=== PATIENT | female | born 1980 | race Caucasian/White ===

== ENCOUNTER → 2018-10-30 | Outpatient (CLI) | payer BC ==
--- NOTE | 2018-10-30 09:48 | Diagnostic Imaging Report ---
PROCEDURE: MRI lumbar spine. TECHNIQUE: Multiplanar, multisequence MRI of the lumbar spine was performed without contrast. INDICATION: Low back pain with occasional pain and numbness in the lower extremities. No prior studies are available for comparison. FINDINGS: Curvature of the lumbar spine is normal. There appears to be minimal retrolisthesis of L5 on S1. Vertebral body heights are maintained. The marrow signal intensity is unremarkable. No geographic marrow lesion or acute compression fracture is seen. There is some desiccation of the disc at L5-S1 level compatible with degenerative change. Remaining disc demonstrate normal height and signal intensity. The conus appears unremarkable at the L1-2 level. T12-L1: Central canal and neural foramina are widely patent. L1-L2: Unremarkable. L2-L3: There is some ligamentous thickening and facet changes but central canal and neural foramina are widely patent. L3-L4: There are degenerative changes of the facet as well as ligamentous thickening. Central canal remains widely patent. No neural foraminal stenosis is seen. L4-L5: Ligament thickening and facet changes are present. Central canal remains patent. Neural foramina are patent. L5-S1: Ligamentous thickening and facet changes are present. This does create some trefoil configuration to the sac. There is also broad-based disc/osteophyte complex indenting the sac. Moderate central canal and bilateral lateral recess narrowing is noted. Neural foramina are patent. Paraspinous tissues are unremarkable. IMPRESSION: 1. Minimal retrolisthesis L5 on S1. There is also L5-S1 degenerative disc and facet disease resulting in central canal and lateral recess stenosis. No neural foraminal stenosis is seen. There is facet arthropathy at all levels of lumbar spine, but remaining levels are without central canal or neural foraminal narrowing. Dictated by: Dictated on workstation # [id number]
== END ==
LOC: RAD 08:41
PROVIDERS: ATTEND Nurse Practitioner Family
DX: M51.37 Other intervertebral disc degeneration, lumbosacral region (principal); M48.061 Spinal stenosis, lumbar region without neurogenic claudication; M46.86 Other specified inflammatory spondylopathies, lumbar region
CPT/HCPCS: 72148

== ENCOUNTER 2018-12-19 19:40 | Emergency (ER) | payer BC ==
[~2018-12-19] VITALS: Ht 160 cm; Wt 70.3 kg
[2018-12-19] MEDS ORDERED: NS IV 1000 ML 1,000 ML IV ONE (20:15)
[2018-12-19 20:39] LABS: BASOPHILS % (AUTO) 0 % (0-10); EOSINOPHILS % (AUTO) 1 % (0-10); HEMATOCRIT 42 % (35-52); HEMOGLOBIN 14.2 G/DL (11.5-16.0); LYMPHOCYTES % (AUTO) 25 % (12-44); MEAN CORPUSCULAR HEMOGLOBIN 29 PG (25-34); MEAN CORPUSCULAR HGB CONC 34 G/DL (32-36); MEAN CORPUSCULAR VOLUME 86 FL (80-99); MEAN PLATELET VOLUME 9.5 FL (7.4-10.4); MONOCYTES % (AUTO) 8 % (0-12); NEUTROPHILS % (AUTO) 65 % (42-75); PLATELET COUNT 341 10^3/uL (130-400); WHITE BLOOD COUNT 9.1 10^3/uL (4.3-11.0)
[2018-12-19 20:40] LABS: EOSINOPHILS # (AUTO) 0.1 10^3/uL (0.0-0.3); LYMPHOCYTES # (AUTO) 2.2 X 10^3 (1.0-4.0); MONOCYTES # (AUTO) 0.8 X 10^3 (0.0-1.0); NEUTROPHILS # (AUTO) 5.9 X 10^3 (1.8-7.8)
[2018-12-19 21:00] LABS: CARBON DIOXIDE 25 MMOL/L (21-32); CHLORIDE 98 MMOL/L (98-107); POTASSIUM 3.4 MMOL/L (3.6-5.0); SODIUM 139 MMOL/L (135-145)
[2018-12-19 21:01] LABS: ALANINE AMINOTRANSFERASE 46 U/L (0-55); ALBUMIN 4.5 GM/DL (3.2-4.5); ALKALINE PHOSPHATASE 111 U/L (40-136); BILIRUBIN,TOTAL 0.4 MG/DL (0.1-1.0); BUN/CREATININE RATIO 8; CALCIUM 9.1 MG/DL (8.5-10.1); CREATININE SERUM 0.89 MG/DL (0.60-1.30); GFR ESTIMATED > 60; GLUCOSE 95 MG/DL (70-105); TOTAL PROTEIN 7.5 GM/DL (6.4-8.2)
[2018-12-19 21:03] LABS: AMPHETAMINE SCREEN, URINE POSITIVE (NEGATIVE); BENZODIAZEPINES SCREEN URINE NEGATIVE (NEGATIVE); COCAINE SCREEN URINE NEGATIVE (NEGATIVE); METHAMPHETAMINE SCREEN URINE S NEGATIVE (NEGATIVE); OPIATE SCREEN URINE POSITIVE (NEGATIVE); TRICYCLIC ANTIDEPRESSANTS SCRE POSITIVE (NEGATIVE)
[2018-12-19 21:04] LABS: BARBITURATE SCREEN URINE NEGATIVE (NEGATIVE); CANNABINOID SCREEN, URINE NEGATIVE (NEGATIVE); METHADONE STAT NEGATIVE (NEGATIVE); OXYCODONE STAT NEGATIVE (NEGATIVE); PROPOXYPHENE STAT NEGATIVE (NEGATIVE)
[2018-12-19 21:22] LABS: BACTERIA,URINE FEW /HPF; BILIRUBIN,URINE NEGATIVE (NEGATIVE); CLARITY,URINE CLEAR; COLOR,URINE YELLOW; GLUCOSE, URINE (UA) NEGATIVE (NEGATIVE); KETONES,URINE NEGATIVE (NEGATIVE); LEUKOCYTE ESTERASE ,URINE NEGATIVE (NEGATIVE); NITRITE,URINE NEGATIVE (NEGATIVE); PROTEIN,URINE NEGATIVE (NEGATIVE); UROBILINOGEN,URINE 0.2 MG/DL (NORMAL); WBC,URINE 0-2 /HPF
--- NOTE | 2018-12-19 23:33 | ED General ---
General Chief Complaint: Respiratory Problems Stated Complaint: SOB/DIZZINESS Nursing Triage Note: Patient presents with complaints of dizziness and shortness of breath. Patient is anxious and tearful. Patient states that she hasn't been feeling good for the last week or so. Patient is unable to accurately describe what is wrong without getting upset. Patient does state she has been to the doctor and they have increased her anxiety and depression medications. Patient complains of dry throat, increased heart rate, shortness of breath, flushing and anxiety. Patient also states she has been unable to eat much of anything but denies nausea/vomiting. Nursing Sepsis Screen: No Definite Risk Source of Information: Patient History of Present Illness Date Seen by Provider: Dec 19, 2018 Time Seen by Provider: 22:58 Initial Comments 38 yo F presents with complaint of being dizzy and short of breath. She has not felt well for a while now but today she had an episode of feeling her heart racing. She was feeling like she was hyperventilating and then had tingling in her hands as well. she had generalized pains in her body as well. She has fibromyalgia and was unsure if this was a flare up for her or if there was something more wrong. She also had chest pains that started up for her. she had this persist at home despite trying to get it to calm down for her. When she could not get it to improve she finally decided to come to the ED to see if th ere was something more going on or if she was having something with her heart happening instead of just her fibromyalgia acting up. She has been under extra stress recently with graduation and several family issues. Allergies and Home Medications Allergies Coded Allergies: No Known Drug Allergies (Unverified , 12/19/18) Patient Home Medication List Home Medication List Reviewed: Yes Review of Systems Review of Systems Constitutional: see HPI EENTM: nose congestion, other (sinus pressure) Respiratory: cough, short of breath Cardiovascular: see HPI, chest pain, palpitations Gastrointestinal: no symptoms reported Genitourinary: no symptoms reported Musculoskeletal: muscle pain (generalized) Skin: no symptoms reported Psychiatric/Neurological: Anxiety Hematologic/Lymphatic: No Symptoms Reported Past Huwxruk-Dqhecu-Jpcxte Hx Past Med/Social Hx: Reviewed Nursing Past Med/Soc Hx Patient Social History Alcohol Use: Denies Use Recreational Drug Use: No Smoking Status: Never a Smoker 2nd Hand Smoke Exposure: No Recent Foreign Travel: No Contact w/Someone Who Travel: No Recent Infectious Disease Expo: No Recent Hopitalizations: No Physical Abuse: No Sexual Abuse: No Mistreated: No Fear: No Seasonal Allergies Seasonal Allergies: No Past Medical History Surgeries: No Respiratory: No Cardiac: No Neurological: Yes (Fibromyalgia) Genitourinary: No Gastrointestinal: Yes Irritable Bowel Musculoskeletal: No Endocrine: No HEENT: No Cancer: No Psychosocial: Yes Anxiety, Depression Integumentary: No Blood Disorders: No Physical Exam Vital Signs Vital Signs - First Documented 12/19/18 19:45 Temp 97.8 Pulse 126 Resp 26 B/P (MAP) 147/88 (107) Pulse Ox 100 O2 Delivery Room Air Capillary Refill : Less Than 3 Seconds Height, Weight, BMI Height: 5'3.00" Weight: 155lbs. 0oz. [id number]; BMI Method:Stated General Appearance: WD/WN, Anxious HEENT: PERRL/EOMI, Pharynx Normal Neck: Normal Inspection, Non Tender, Supple Respiratory: Chest Non Tender, Lungs Clear, Normal Breath Sounds, No Accessory Muscle Use, No Respiratory Distress Cardiovascular: Regular Rate, Rhythm, Normal Peripheral Pulses Gastrointestinal: No Pulsatile Mass, Non Tender, Soft Rectal: Deferred Extremity: Normal Capillary Refill, Normal Inspection Neurologic/Psychiatric: Alert, Oriented x3 Skin: Normal Color, Warm/Dry Progress/Results/Core Measures Suspected Sepsis Recent Fever Within 48 Hours: No Infection Criteria Present: None New/Unexplained Altered Menta: No Sepsis Screen: No Definite Risk SIRS Temperature:97.8 Pulse: 126 Respiratory Rate: 26 Laboratory Tests 12/19/18 20:30: White Blood Count 9.1 Blood Pressure 147 /88 Mean: 107 Laboratory Tests 12/19/18 20:30: Creatinine 0.89, Platelet Count 341, Total Bilirubin 0.4 Results/Orders Lab Results Laboratory Tests Test 12/19/18 20:15 12/19/18 20:30 Range/Units Urine Color YELLOW Urine Clarity CLEAR Urine pH 8.0 5-9 Urine Specific [place] <=1.005 1.016-1.022 Urine Protein NEGATIVE NEGATIVE Urine Glucose (UA) NEGATIVE NEGATIVE Urine Ketones NEGATIVE NEGATIVE Urine Nitrite NEGATIVE NEGATIVE Urine Bilirubin NEGATIVE NEGATIVE Urine Urobilinogen 0.2 NORMAL MG/DL Urine Leukocyte Esterase NEGATIVE NEGATIVE Urine RBC (Auto) NEGATIVE NEGATIVE Urine RBC NONE /HPF Urine WBC 0-2 /HPF Urine Squamous Epithelial Cells 5-10 /HPF Urine Crystals NONE /LPF Urine Bacteria FEW H /HPF Urine Casts NONE /LPF Urine Mucus NONE /LPF Urine Culture Indicated NO Urine Opiates Screen POSITIVE H NEGATIVE Urine Oxycodone Screen NEGATIVE NEGATIVE Urine Methadone Screen NEGATIVE NEGATIVE Urine Propoxyphene Screen NEGATIVE NEGATIVE Urine Barbiturates Screen NEGATIVE NEGATIVE Ur Tricyclic Antidepressants Screen POSITIVE H NEGATIVE Urine Phencyclidine Screen NEGATIVE NEGATIVE Urine Amphetamines Screen POSITIVE H NEGATIVE Urine Methamphetamines Screen NEGATIVE NEGATIVE Urine Benzodiazepines Screen NEGATIVE NEGATIVE Urine Cocaine Screen NEGATIVE NEGATIVE Urine Cannabinoids Screen NEGATIVE NEGATIVE White Blood Count 9.1 4.3-11.0 10^3/uL Red Blood Count 4.82 4.35-5.85 10^6/uL Hemoglobin 14.2 11.5-16.0 G/DL Hematocrit 42 35-52 % Mean Corpuscular Volume 86 80-99 FL Mean Corpuscular Hemoglobin 29 25-34 PG Mean Corpuscular Hemoglobin Concent 34 32-36 G/DL Red Cell Distribution Width 12.0 10.0-14.5 % Platelet Count 341 130-400 10^3/uL Mean Platelet Volume 9.5 7.4-10.4 FL Neutrophils (%) (Auto) 65 42-75 % Lymphocytes (%) (Auto) 25 12-44 % Monocytes (%) (Auto) 8 0-12 % Eosinophils (%) (Auto) 1 0-10 % Basophils (%) (Auto) 0 0-10 % Neutrophils # (Auto) 5.9 1.8-7.8 X 10^3 Lymphocytes # (Auto) 2.2 1.0-4.0 X 10^3 Monocytes # (Auto) 0.8 0.0-1.0 X 10^3 Eosinophils # (Auto) 0.1 0.0-0.3 10^3/uL Basophils # (Auto) 0.0 0.0-0.1 10^3/uL Sodium Level 139 135-145 MMOL/L Potassium Level 3.4 L 3.6-5.0 MMOL/L Chloride Level 98 98-107 MMOL/L Carbon Dioxide Level 25 21-32 MMOL/L Anion Gap 16 H 5-14 MMOL/L Blood Urea Nitrogen 7 7-18 MG/DL Creatinine 0.89 0.60-1.30 MG/DL Estimat Glomerular Filtration Rate > 60 BUN/Creatinine Ratio 8 Glucose Level 95 70-105 MG/DL Calcium Level 9.1 8.5-10.1 MG/DL Corrected Calcium 8.7 8.5-10.1 MG/DL Total Bilirubin 0.4 0.1-1.0 MG/DL Aspartate Amino Transf (AST/SGOT) 36 H 5-34 U/L Alanine Aminotransferase (ALT/SGPT) 46 0-55 U/L Alkaline Phosphatase 111 40-136 U/L Total Protein 7.5 6.4-8.2 GM/DL Albumin 4.5 3.2-4.5 GM/DL Human Chorionic Gonadotropin, Quant < 5 <5 MIU/ML My Orders Orders - HARSHAL BUI MD Cbc With Automated Diff (12/19/18 20:11) Comprehensive Metabolic Panel (12/19/18 20:11) Ua Culture If Indicated (12/19/18 20:11) Hcg,Quantitative (12/19/18 20:11) Drug Screen Stat (Urine) (12/19/18 20:11) Ed Iv/Invasive Line Start (12/19/18 20:11) Ns Iv 1000 Ml (Sodium Chloride 0.9%) (12/19/18 20:15) Medications Given in ED Vital Signs/I&O Capillary Refill : Less Than 3 Seconds Blood Pressure Mean: 107 Progress Note : Progress Note labs and general tests did not show any acute abnormality to account for her symptoms. a liter of NS was infused and she was resting in the room while I finished a procedure on another patient. When the fluids had finished she was feeling better and was asking to go home. Her symptoms that had prompted her to come to the ED had resolved and she wanted to go home and check with her pcp. She had recently had several meds changed so she did not want to adjust anything from here in the ED. Counseled on follow up and return precautions ECG Initial ECG Impression Date: Dec 19, 2018 Initial ECG Impression Time: 20:22 Initial ECG Rate: 104 Initial ECG Rhythm: S.Tach Initial ECG Intervals: Normal Initial ECG Comparisson: No Previous ECG Available Comment Sinus tachycardia with heart rate 104 bpm. HI interval 553 ms. QT interval 366 ms with a QT corrected interval of 482 ms. There is no acute ST elevation or ischemic changes. No prior tracing for comparison. Departure Impression Primary Impression: Palpitations Additional Impressions: Fibromyalgia syndrome Hyperventilation Malaise and fatigue Disposition: HOME, SELF-CARE Condition: Stable Departure-Patient Inst. Decision time for Depature: 23:32 Referrals: JACOB MCCARTHY MD (PCP/Family) Primary Care Physician Patient Instructions: Fibromyalgia (DC), Palpitations (DC) Add. Discharge Instructions: Continue on your regular medicines. Check with your regular provider on Friday about your symptoms and medicines Stay well hydrated and try getting plenty of rest All discharge instructions reviewed with patient and/or family. Voiced understanding. HARSHAL BUI MD Dec 19, 2018 23:33
[2018-12-19 23:35] VITALS: BP 124/76
== END 2018-12-19 23:25 | disposition home or self-care (01) ==
LOC: EDUNIT# 19:40 → ER FS 19:42
DX: R00.2 Palpitations (principal); M79.7 Fibromyalgia; K58.9 Irritable bowel syndrome, unspecified; R06.4 Hyperventilation; R53.81 Other malaise; R53.83 Other fatigue; F41.9 Anxiety disorder, unspecified; F32.9 Major depressive disorder, single episode, unspecified
CPT/HCPCS: 36415; 80053; 80306; 81000; 84702; 85025; 93005; 96360; 99282

== ENCOUNTER → 2019-03-30 | Outpatient (CLI) | payer BC ==
--- NOTE | 2019-03-30 16:42 | Diagnostic Imaging Report ---
INDICATION: Chronic back pain. TIME OF EXAM: 2:06 p.m. FINDINGS: Curvature and alignment of the thoracic spine is normal. Vertebral body heights are well maintained. Pedicles and paraspinous line are intact. No fractures are seen. IMPRESSION: No acute bony abnormality is detected. Dictated by: Dictated on workstation # [id number]
--- NOTE | 2019-03-30 17:21 | Diagnostic Imaging Report ---
INDICATION: Chronic neck pain. TIME OF EXAM: 02:01 p.m. FINDINGS: Three views of the cervical spine were obtained. There is slight reversal of the normal cervical lordotic curvature. No fractures are seen. Prevertebral tissues are within normal limits. Disc spaces are well maintained. Odontoid is not well evaluated on this study. IMPRESSION: Reversal of normal cervical curvature. No acute abnormality is detected. Dictated by: Dictated on workstation # [id number]
== END ==
LOC: RAD FS 13:41
DX: G89.29 Other chronic pain (principal); M54.6 Pain in thoracic spine; M54.2 Cervicalgia
CPT/HCPCS: 72040; 72072

== ENCOUNTER → 2020-09-21 | Outpatient (CLI) | payer BC ==
--- NOTE | 2020-09-21 16:38 | Diagnostic Imaging Report ---
INDICATION: Chronic lower back pain. COMPARISON: None FINDINGS: Frontal and lateral radiographic views of the lumbar spine were obtained. Note is made of transitional thoracolumbar and lumbosacral anatomy. Slight grade 1 anterolisthesis is noted at L4-L5. There is no evidence of jumped facets. Vertebral body heights are maintained. There is no acute fracture. Included small bowel loops are nondistended. IMPRESSION: 1. Transitional thoracolumbar and lumbosacral anatomy. 2. No acute fracture or dislocation. Dictated by: Dictated on workstation # [id number]
== END ==
LOC: RAD FS 15:38
DX: M54.5 Low back pain (principal)
CPT/HCPCS: 72100

== ENCOUNTER 2021-08-27 16:07 | Emergency (ER) | payer BC ==
[~2021-08-27] VITALS: Ht 160 cm; Wt 59.0 kg
--- NOTE | 2021-08-27 16:20 | ED General ---
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 pt is allergic to all mammals and mammalian products including wax. She started to feel her throat close up and had a little bit of shortness of breath, with nausea, and dizziness, and did not feel well after breathing in the scent of the candle. Pt took her epi pen, Benadryl 50mg tab, and pepcid 20mg taab as soon as she felt that way. In the ER pt appears ill and anxious. Pt is able to speak in complete sentences without any issues. Denies chest pain, SOB, abdominal pain,fever, blurry vision, headache. Allergies and Home Medications Allergies Coded Allergies: No Known Drug Allergies (Unverified , 12/19/18) Patient Home Medication List Home Medication List Reviewed: Yes Review of Systems Review of Systems Constitutional: no symptoms reported, dizziness EENTM: throat swelling Respiratory: no symptoms reported Cardiovascular: no symptoms reported Gastrointestinal: nausea, vomiting Genitourinary: no symptoms reported : No Musculoskeletal: no symptoms reported Skin: no symptoms reported Psychiatric/Neurological: Anxiety Hematologic/Lymphatic: No Symptoms Reported Immunological/Allergic: no symptoms reported Past Wapygax-Cdqhzz-Bvvski Hx Seasonal Allergies Seasonal Allergies: No Past Medical History Surgeries: No Respiratory: No Cardiac: No Neurological: Yes (Fibromyalgia) Genitourinary: No Gastrointestinal: Yes Irritable Bowel Musculoskeletal: No Endocrine: No HEENT: No Cancer: No Psychosocial: Yes Anxiety, Depression Integumentary: No Blood Disorders: No Physical Exam Vital Signs Vital Signs - First Documented Capillary Refill : Height, Weight, BMI Height: 5'3.00" Weight: 155lbs. 0oz. 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 as Tested Skin: Normal Color Lymphatic: No Adenopathy Progress/Results/Core Measures Suspected Sepsis SIRS Temperature: Pulse: Respiratory Rate: Blood Pressure / Mean: Results/Orders My Orders Orders - RAYSHAWN GARCIA MD Dexamethasone Injection (Decadron Inje (08/27/21 16:30) Ed Iv/Invasive Line Start (08/27/21 16:20) Ns Iv 1000 Ml (Sodium Chloride 0.9%) (08/27/21 16:30) Medications Given in ED Current Medications Medications Dose Ordered Sig/Shanda Route Start Time Stop Time Status Last Admin Dose Admin Dexamethasone Sodium Phosphate 10 mg ONCE ONCE IV 08/27/21 16:30 08/27/21 16:31 DC 08/27/21 16:28 10 MG Vital Signs/I&O 08/27/21 08/27/21 16:12 16:12 Temp 36.9 Pulse 127 Resp 26 B/P (MAP) 132/62 (85) O2 Delivery Room Air Room Air Capillary Refill : Progress Note : Progress Note 1. ALLERGIC REACTION: - Pt has already taken one epipen, Benadryl and pepcid prior to coming to ER. Vitals stable, pt able to speak in clear complete sentences. - Dexa 10mg iv and NS IVF bolus 1L STAT - Pt improved trav to baseline prior to discharge from ER. - F/u with PCP - The patient was seen in the ED, and treated appropriately to presentation at a specific point in time. Patient is informed that there is a possibility that disease and illness can evolve and change in acuity rapidly or slowly after patient is discharged from the ER. Precautionary advice given to the patient for immediate return to ER if symptoms worsen or do not resolve, and to seek emergency care sooner rather than later. Pt also advised on the importance of PCP follow up and compliance with management and follow up plan. Pt verbally expressed understanding. Departure Impression Primary Impression: Allergic reaction Qualified Codes: T78.40XA - Allergy, unspecified, initial encounter Disposition: 01 HOME, SELF-CARE Condition: Stable Departure-Patient Inst. Referrals: JACOB MCCARTHY MD (PCP/Family) Primary Care Physician Patient Instructions: Allergy Skin Testing, Allergic Reaction ED Add. Discharge Instructions: F/u with PCP Take Benadryl at night tonight and take Pepcid for the next 3 days - Increased water hydration advised RAYSHAWN GARCIA MD Aug 27, 2021 16:20
[2021-08-27] MEDS ORDERED: NS IV 1000 ML 1,000 ML IV SCH (16:30)
[2021-08-27 18:03] VITALS: BP 129/88
== END 2021-08-27 18:04 | disposition home or self-care (01) ==
LOC: EDUNIT# 16:07 → ER FS 16:09
DX: T78.49XA Other allergy, initial encounter (principal)